=== PATIENT | female | born 1970 | race African-American/Black ===

== ENCOUNTER 2021-03-26 16:38 | Inpatient (IN) | payer MEDICAID, OTHER ==
[~2021-03-26] VITALS: Ht 172.7 cm; Wt 123.8 kg
[2021-03-26 19:17] LABS: Albumin 2.9 g/dL (3.4-5.0); Calcium 12.7 mg/dL (8.5-10.1); Potassium 4.2 mmol/L (3.5-5.1)
[2021-03-26 19:19] LABS: BUN/Creatinine Ratio 10.2
[2021-03-26 19:22] LABS: Bilirubin, Total 0.5 mg/dL (0.2-1.0); Total Protein 9.4 g/dL (6.4-8.2)
[2021-03-26 22:58] LABS: Basophils # (auto) 0.1 10 ^3/uL (0-0.2); Eosinophils # (auto) 0.1 10 ^3/uL (0-0.8); Hemoglobin 10.5 g/dL (12.2-16.2); Nucleated Red Blood Cells % 0.1 %; White Blood Cell 13.8 10^3/uL (4.4-10.8)
[2021-03-26 23:03] LABS: Basophils % (auto) 0.7 % (0.0-2.0); Eosinophils % (auto) 0.5 % (0.0-7.0); Hematocrit 35.8 % (36.0-46.0); Lymphocytes # (auto) 1.8 10 ^3/uL (0.4-5.4); Lymphocytes % (auto) 13.1 % (10.0-50.0); Mean Corpuscular Hemoglobin 20.1 pg (28.0-32.0); Mean Corpuscular Hgb Conc. 29.3 g/dL (32.0-36.0); Mean Corpuscular Volume 68.7 fL (80.0-100.0); Monocytes % (auto) 7.4 % (0.0-12.0); Neutrophils # (auto) 10.8 10 ^3/uL (1.6-8.6); Neutrophils % (auto) 78.3 % (37.0-80.0)
[2021-03-26 23:04] LABS: Red Cell Distribution Width 20.6 % (11.8-14.3)
[2021-03-26 23:16] LABS: INR 1.05 (0.9-1.15); Partial Thromboplastin Time 21.7 sec (23.6-33.0)
[2021-03-27] MEDS ORDERED: HEPARIN SODIUM (PORCINE) 5000 UNITS/ML 1ML VIAL IV ONE (02:00)
[2021-03-27] MEDS ORDERED: HEPARIN DRIP/D5W 100UNITS/ML 250 ML IV SCH (02:00)
[2021-03-27] MEDS ORDERED: HYDROcodone-ACET 5/325MG TAB PO PRN (05:15)
[2021-03-27] MEDS ORDERED: TEMAZEPAM 15 MG CAP PO PRN (05:15)
[2021-03-27] MEDS ORDERED: MORPHINE SULFATE INJECTION 2 MG/ML SYRG IV PRN (05:15)
[2021-03-27] MEDS ORDERED: ONDANSETRON HCL 4 MG/2 ML VIAL IV PRN (05:15)
[2021-03-27] MEDS ORDERED: ACETAMINOPHEN 325 MG TAB PO PRN (05:15)
[2021-03-27] MEDS ORDERED: NITROGLYCERIN 0.4 MG SL TAB SL PRN (05:15)
[2021-03-27] MEDS ORDERED: SODIUM CHLORIDE 0.9% 500 ML IV ONE (05:15)
[2021-03-27] MEDS ORDERED: cefTRIAXone 1GM/50ML D5W 50 ML IV SCH (09:00)
[2021-03-27 09:25] LABS: BUN/Creatinine Ratio 11.7; Calcium 12.3 mg/dL (8.5-10.1); Potassium 4.1 mmol/L (3.5-5.1)
[2021-03-27 12:32] LABS: INR 1.19 (0.9-1.15)
[2021-03-27 12:33] LABS: Partial Thromboplastin Time > 139.0 sec (23.6-33.0)
[2021-03-27] MEDS ORDERED: APIXABAN 5 MG TAB PO SCH (12:52)
[2021-03-27 12:59] VITALS: BP 134/45
[2021-04-03] MEDS ORDERED: APIXABAN 5 MG TAB PO SCH (22:00)
== END 2021-03-27 14:45 | disposition home or self-care (01) | DRG 197 ==
LOC: EDBD 16:38 → EDUNIT# 16:38 → ER 16:38 → TELE 03-27 05:03
PROVIDERS: ADMIT Nurse Practitioner; ATTEND Internal Medicine
DX: I82.401 Acute embolism and thrombosis of unspecified deep veins of right lower extremity (principal); N17.0 Acute kidney failure with tubular necrosis; E44.0 Moderate protein-calorie malnutrition; R65.10 Systemic inflammatory response syndrome (SIRS) of non-infectious origin without acute organ dysfunction; D63.1 Anemia in chronic kidney disease; D63.8 Anemia in other chronic diseases classified elsewhere; Z20.822 Contact with and (suspected) exposure to COVID-19; E66.01 Morbid (severe) obesity due to excess calories; N18.9 Chronic kidney disease, unspecified; Z90.49 Acquired absence of other specified parts of digestive tract; Z68.41 Body mass index [BMI] 40.0-44.9, adult
CPT/HCPCS: 36415; 71045; 80048; 80053; 83880; 85025; 85379; 85610; 85730; 87040; 87426; 93971; 96361; 96365; 96367; 96375; G0378; J0696